=== PATIENT | female | born 2000 | race Caucasian/White ===

== ENCOUNTER 2023-12-08 08:28 | Outpatient (CLI) | payer BC, SELFPAY ==
--- NOTE | 2023-12-08 08:45 | US_ITS ---
Patient: TITA MCLAUGHLIN Facility:?[facility] Patient ID:?[id number] Site Patient ID:?[id number]. Site :?[id number] Study:?US-OB Pelvis TA/TV Pelvic US-12/08/2023 9:36:34 AM Ordering Physician:Marlene Hines Final Report: INDICATION: Pain and history of endometriosis. TECHNIQUE: Transabdominal and transvaginal pelvic ultrasound with grayscale and duplex Doppler images. FINDINGS: Uterus is anteverted and measures 7.1 x 2.4 x 3.5 cm. Endometrial stripe thickness is 4 mm. Both ovaries appear normal and have normal color and spectral Doppler flow. No adnexal mass or free fluid. IMPRESSION: Normal pelvic ultrasound. Dictated by Yoel Gray MD @ 12/09/2023 8:40:11 AM Signed by:?Yoel Gray MD @12/09/2023 8:40:11 AM (Electronic Signature)
== END 2023-12-08 08:29 | disposition home or self-care (01) ==
LOC: US 08:29
PROVIDERS: PCP Family Medicine; Visit Provider Obstetrics & Gynecology
DX: R10.2 Pelvic and perineal pain (principal)
CPT/HCPCS: 76830; 76856; 93976

== ENCOUNTER 2024-01-07 10:48 | Day surgery (SDC) | payer BC, SELFPAY ==
[2024-01-07] VITALS (11 sets, daily range): BP systolic 100–121; BP diastolic 42–78; PULSE 57–82; RESP 12–17; TEMP 36.3–36.6; O2SAT 95–100; BMI 29.0
--- OUTSIDE RECORDS SUMMARY | 2024-01-07 10:50 | XMS_ITS | Referral Summary ---
Author Name Unknown Organization [facility] Address [address] [place] [id number] Care Team Providers Care Cyber Systems Operations Specialist Name Role Phone No Ref-Primary, Physician Primary Care Provider Allergies No known active allergies Social History Tobacco Use Types Packs/Day Years Used Date Smoking Tobacco: Never Smokeless Tobacco: Never Alcohol Use Standard Drinks/Week Comments Yes 0 (1 standard drink = 0.6 oz pur e alcohol) monthly Adolescent Education Answer Date Record ed Getting School Help Needed Not on file 06/07 Sex and Gender Information Value Date Recorded Sex Assigned at Not on file Gender Identity Not on file Sexual Orientation Not on file Last Filed Vital Signs Vital Sign Reading Time Taken Comments Blood Pressure 120/80 05/19/2021 2:30 PM CDT Pulse 76 05/19/2021 2:30 PM CDT Temperature 37.2 ??C (99 ??F) 05/19/2021 12:42 PM CDT Respiratory Rate 16 05/19/2021 2:30 PM CDT Oxygen Saturation 100% 05/19/2021 2:30 PM CDT Inhaled Oxygen Concentration - - Weight - - Height 162.6 cm (5' 4) 05/19/2021 12:42 PM CDT Body Mass Index - - Plan of Treatment Not on file Care Teams Cyber Systems Operations Specialist Relationship Specialty Start Date End Date No Ref-Primary, Physician PCP - General 05/19/21
--- OUTSIDE RECORDS SUMMARY | 2024-01-07 10:50 | XMS_ITS | Clinical Summary ---
Author Name Unknown Organization [place] Address Formerly [facility], [id number] [facility] [place] [address] Care Team Providers Care Retail Planner Name Role Phone No Ref-Primary, Physician Primary [...] Mass Index - - Plan of Treatment Health Maintenance Due Date Last Done Comments ADVANCE CARE PLANNING 2000 ANNUAL REVIEW OF HM ORDERS 2000 CHLAMYDIA SCREENING 2000 HIV SCREENING 2015 HPV IMMUNIZATION (1 - 3-dose series) 2015 HEPATITIS C SCREENING 2018 PAP 2021 YEARLY PREVENTIVE VISIT 03/29/2022 03/29/2021 COVID-19 Vaccine ( season) 2023 INFLUENZA VACCINE (#1) 2023 08/20/2019 PHQ-2 (once per calendar year) 2023 DTAP/TDAP/TD IMMUNIZATION (8 - Td or Tdap) 02/21/2031 02/21/2021, 05/12/2012, 02/04/2005, Additional history exists HEPATITIS B IMMUNIZATION Completed 001, 2000, 2000 IPV IMMUNIZATION Completed 02/04/2005, , 2000, Additional history exists MENINGITIS IMMUNIZATION Aged Out No l onger eligible based on patient's age to complete this topic Pneumococcal Vaccine: Pediatrics (0 to 5 Years) and At-Risk Patients (6 to 64 Years) Aged Out No longer eligible based on patient's age to complete this topic RSV MONOCLONAL ANTIBODY Aged Out No l onger eligible based on patient's age to complete this topic Care Teams Retail Planner Relationship Specialty Start Date End Date No Ref-Primary, Physician PCP - General 05/19/21
[2024-01-07] MEDS: LACTATED RINGERS 1000 ML 1,000 ML 100 ML IV ×2 (11:40→13:05)
[2024-01-07] MEDS: SODIUM CHLORIDE 0.9 % (FLUSH) 10 ML SYRINGE IVF (11:40)
[2024-01-07 11:52] LABS: Hemoglobin* 12.8 gm/dL (12.0-16.0)
[2024-01-07 11:54] LABS: Ur HCG Qualitative* Negative (Negative)
--- NOTE | 2024-01-07 13:18 | W.ANESCHARGE ---
Anesthesia Charges Start Date/Time Anesthesia Start Date: 01/07/24 Anesthesia Start Time: 12:09 Stop Date/Time Anesthesia Stop Date: 01/07/24 Anesthesia Stop Time: 13:58
[2024-01-07] MEDS: BUPIVACAINE 0.25% 30 ML 6 ML INJECTION (13:36)
--- NOTE | 2024-01-07 13:59 | W.ANESCHARGE ---
Anesthesia Charges Start Date/Time Anesthesia Start Date: 01/07/24 Anesthesia Start Time: 12:09 Stop Date/Time Anesthesia Stop Date: 01/07/24 Anesthesia Stop Time: 13:58
[2024-01-07] MEDS: fentaNYL 100 MCG/2 ML inj 50 MCG IVP (14:09)
--- NOTE | 2024-01-07 14:34 | SUR.PHASEI ---
patient met discharge criteria per anesthesia
[2024-01-07] MEDS: OXYCODONE 5 MG TABLET PO (15:11)
--- NOTE | 2024-01-07 15:39 | W.PM.GYNPROC ---
Procedure Note Date of procedure: 01/07/24 Will [facility] bill your pro fee for this procedure?: Yes Pre-op diagnosis: Endometriosis diagnosed on laparoscopy Recurrent pelvic pain Post-op diagnosis: Stage I endometriosis 2 cm simple left ovarian cyst Procedure: Laparoscopy with excision of endometriosis and left ovarian cystectomy Anesthesia: GETA Complications: None Surgeon: Marlene Matute MD Estimated blood loss (mL): 5 IV fluids (mL): 1,500 Urine Output (mL): 500 Pathology: specimen obtained, sent to pathology (1. Bilateral fallopian tubes. 2. Left ovarian cyst wall. I verbally confirmed my request to send these specimens to pathology at time of postoperative deep brief.) Condition: stable Disposition: same day Findings: 1. Upon pelvic exam under anesthesia, the cervix and vagina were normal in appearance. Uterus was mobile and anteverted, of normal size and texture. There were no palpable adnexal masses. 2. Upon laparoscopy, survey of the upper abdomen revealed a normal appearance to the inferior edge of the liver, gallbladder and stomach. Bowels were grossly normal appearance, as was the appendix. Survey of the pelvis revealed normal appearance to the uterus. Left ovary exhibited a 2 cm simple cyst that contained clear fluid. Otherwise, bilateral tubes and ovaries were normal in appearance. There were 2 powder burn lesions in the cul-de-sac, each approximately 1-2 mm in greatest dimension. One was on the proximal left uterosacral ligament and the other in the posterior cul-de-sac. The bladder reflection was normal in appearance. Procedure Description: Patient was taken to the operating room with IV running. She was positioned in dorsal lithotomy position with her legs fully supported in Yellofin stirrups. General anesthesia was administered. She was prepped and draped in the usual sterile fashion. Bimanual exam was performed for the above-noted findings. Speculum was inserted. A single-toothed uterine manipulator was inserted through the cervix into the lower uterine segment, and affixed to the anterior cervical lip. Speculum was removed. Mena catheter was placed. Patient's legs were placed in neutral position. Attention was turned to patient's abdomen. The infraumbilical area was infiltrated with small amount of Marcaine. An infraumbilical incision was made with a scalpel and carried through to the underlying layer of fascia with a hemostat. The 5 mm Fios Kii trocar was assembled with laparoscope within, and insufflator attached. While tenting up the abdomen manually, the trocar was passed through the anterior abdominal wall into the peritoneal cavity. Trocar was removed. Pneumoperitoneum was achieved. Survey of abdomen and pelvis revealed the above-noted findings. Two additional port sites were created. The first was in the patient's left lower quadrant, just superior medial to the left ASIS. The second was a hand's breath superior to and slightly medial to the first. Each was infiltrated with small amount of Marcaine prior to incision. A 5 mm incision was made at each site, making sure the large vessels were out of harm's way. A 5 mm Fios Kii port was inserted at each site, under direct visualization and without complication. The balloon on each of the ports was inflated, holding each in place. The above described powder brown lesions or grasped with Varsha forceps and sharply excised. These were sent to pathology. Hemostasis in the dissection beds was achieved with monopolar cautery. The surface of the left ovarian cyst was opened bluntly. This opening was widened with laparoscopic graspers. The cyst wall was grasped and peeled away from the surrounding ovarian tissue. Hemostasis of the surrounding ovarian tissue was achieved with monopolar cautery. Cyst wall was sent to pathology for further analysis. Suction assistant casino shift manager was used to clear the pelvis of blood, and sterile saline was then left in the cul-de-sac to cover the excision bed of endometriosis. All instruments were removed from the ports. The balloon tip of each port was deflated, and pneumoperitoneum released. All ports were removed. The skin of each port site was closed with a subcuticular stitch of 4-0 Monocryl. Surgical glue was applied above this. Patient's legs were placed back in lithotomy position. Uterine manipulator was removed and hemostasis was noted. Mena catheter was removed. Patient tolerated procedure well and was taken to recovery area in stable condition.
== END 2024-01-07 15:29 | disposition home or self-care (01) ==
PROVIDERS: PCP Family Medicine; Visit Provider Obstetrics & Gynecology
PROC: (CPT 49320; principal; 2024-01-07 12:15)
DX: N80.329 Endometriosis of the posterior cul-de-sac, unspecified depth (principal); N83.292 Other ovarian cyst, left side
CPT/HCPCS: 58662; 00840; 36415; 81025; 85018; 86850; 86900; 86901; 88305; A9270; J0665; J1100; J1630; J1885; J2250; J2405; J2704; J2710; J3010; J7120